=== PATIENT | female | born 1945 | race Caucasian/White ===

== ENCOUNTER 2018-03-31 15:57 | Inpatient (IN) | payer OTHER ==
--- NOTE | 2018-03-31 18:12 | PDOC ---
History of Present Illness - General Chief Complaint: Pain, Acute Stated Complaint: SENT BY PCP Time Seen by Provider: 03/31/18 18:12 Past History - Past Medical History Allergies/Adverse Reactions: Allergies Allergy/AdvReac Type Severity Reaction Status Date / Time No Known Allergies Allergy Verified 03/31/18 16:26 Home Medications: Ambulatory Orders Unobtainable 03/05/17 Anemia: No Asthma: No Cancer: No Cardiac Disorders: No CVA: No COPD: No CHF: No Dementia: No Diabetes: Yes GI Disorders: No Disorders: No HTN: Yes Hypercholesterolemia: No Liver Disease: No Seizures: No Thyroid Disease: No - Surgical History Appendectomy: Yes Cholecystectomy: Yes - Suicide/Smoking/Psychosocial Hx Smoking History: Never smoked If you are a former smoker, when did you quit?: 2013 Hx Alcohol Use: No Drug/Substance Use Hx: No Substance Use Type: None *Physical Exam - Vital Signs Last Vital Signs Temp Pulse Resp BP Pulse Ox 98.6 F 77 18 157/71 98 03/31/18 16:24 03/31/18 16:24 03/31/18 16:24 03/31/18 16:24 03/31/18 16:24 Moderate Sedation - Procedure Monitoring Vital Signs: Procedure Monitoring Vital Signs Temperature 98.6 F 03/31/18 16:24 Pulse Rate 77 03/31/18 16:24 Respiratory Rate 18 03/31/18 16:24 Blood Pressure 157/71 03/31/18 16:24 O2 Sat by Pulse Oximetry (%) 98 03/31/18 16:24
--- NOTE | 2018-03-31 18:28 | PDOC ---
History of Present Illness - General Chief Complaint: Pain, Acute Stated Complaint: SENT BY PCP Time Seen by Provider: 03/31/18 18:12 History Source: Patient Exam Limitations: No Limitations - History of Present Illness Initial Comments: 03/31/18 18:52 72 yo F with a hx of HTN, DM, and nephrolithiasis presents to the emergency department for admission per Dr. Overton for nephrolithiasis. Per Dr. Overton , he states she is scheduled for a procedure tomorrow (lithotripsy). Per the patient, she states she was to come to the ED if the pain was intolerable. She has had pain in the left lower back since January 2018 with radiation to the left groin, 12/05, intermittent, and without aggravating and relieving factors. Denies a previous lithotripsy in the past. Denies the following: fever, chills, vomiting, headaches, ears/nose/throat pain, chest pain, SOB, abdominal pain, dysuria, hematuria, diarrhea, hematochezia, and leg pain/swelling. Per the patient, she endorses increased urinary frequency and nausea. Past History - Past Medical History Allergies/Adverse Reactions: Allergies Allergy/AdvReac Type Severity Reaction Status Date / Time No Known Allergies Allergy Verified 03/31/18 16:26 Home Medications: Ambulatory Orders Acetaminophen 1,000 mg PO BID PRN 03/31/18 Alendronate Sodium [Binosto] 70 mg PO WEEKLY 03/31/18 Atorvastatin Ca [Lipitor] 40 mg PO HS 03/31/18 Clotrimazole [Itch Relief] 45 gm TP BID 03/31/18 Fluticasone Prop 0.05% Nasal [Flonase -] 1 spray NS DAILY 03/31/18 Fluticasone Propionate [Flovent Diskus] 50 mcg IH BID 03/31/18 Gabapentin 100 mg PO TID 03/31/18 Hydrochlorothiazide [Hctz -] 25 mg PO DAILY 03/31/18 Insulin Glargine,Hum.rec.anlog [Basaglar Guerreroikpen U-100] 40 unit SQ HS 03/31/18 Latanoprost 0.005% Eye Drops [Xalatan 0.005% Eye Drops -] 1 drop HS 03/31/18 Lisinopril [Prinivil -] 40 mg PO DAILY 03/31/18 Metoprolol Succinate 25 mg PO DAILY 03/31/18 Repaglinide [Prandin -] 0.5 mg PO DAILY 03/31/18 metFORMIN HCL [Metformin HCl] 1,000 mg PO BID 03/31/18 Anemia: No Asthma: No Cancer: No Cardiac Disorders: No CVA: No COPD: No CHF: No Dementia: No Diabetes: Yes GI Disorders: No Disorders: No HTN: Yes Hypercholesterolemia: No Liver Disease: No Seizures: No Thyroid Disease: No - Surgical History Appendectomy: Yes Cholecystectomy: Yes - Suicide/Smoking/Psychosocial Hx Smoking History: Never smoked If you are a former smoker, when did you quit?: 2013 Hx Alcohol Use: No Drug/Substance Use Hx: No Substance Use Type: None Review of Systems - Review of Systems Able to Perform ROS?: Yes Is the patient limited Frisian proficient: No Constitutional: No: Chills, Diaphoresis, Fever, Weakness HEENTM: No: Eye Pain, Recent change in vision, Ear Pain, Nose Pain, Throat Pain , Mouth Pain Respiratory: No: Cough, Shortness of Breath, SOB with Exertion, Hemoptysis Cardiac (ROS): No: Chest Pain, Lightheadedness, Palpitations, Syncope, Chest Tightness ABD/GI: No: Constipated, Diarrhea, Nausea, Rectal Bleeding, Vomiting, Tarry Stools : No: Burning, Dysuria, Hematuria, Pain Musculoskeletal: Yes: Back Pain (left side). No: Joint Pain, Neck Pain Integumentary: No: Dryness, Erythema, Rash Neurological: No: Headache, Numbness, Tingling, Tremors, Ataxia, Dizziness Psychiatric: No: Change in Appetite Endocrine: No: Unexplained Weight Gain Hematologic/Lymphatic: No: Anemia *Physical Exam - Vital Signs Last Vital Signs Temp Pulse Resp BP Pulse Ox 98.6 F 77 18 157/71 98 03/31/18 16:24 03/31/18 16:24 03/31/18 16:24 03/31/18 16:24 03/31/18 16:24 - Physical Exam General Appearance: Yes: Nourished, Appropriately Dressed. No: Apparent Distress, Intoxicated HEENT: positive: EOMI, ROSE, Normal ENT Inspection, Normal Voice, Symmetrical, TMs Normal, Pharynx Normal, Hearing Grossly Normal. negative: Pale Conjunctivae , Scleral Icterus (R), Scleral Icterus (L), Muffled/Hoarse voice, Pharyngeal Erythema, Tonsillar Exudate, Tonsillar Erythema, Nasal Congestion, Rhinorrhea, Excessive drooling Neck: positive: Trachea midline, Supple. negative: Tender, Lymphadenopathy (R) , Lymphadenopathy (L), Tender lateral, Tender midline Respiratory/Chest: positive: Lungs Clear, Normal Breath Sounds. negative: Chest Tender, Respiratory Distress, Accessory Muscle Use, Crackles, Rales, Rhonchi, Stridor, Wheezing Cardiovascular: positive: Regular Rhythm, Regular Rate, S1, S2. negative: Systolic Murmur Gastrointestinal/Abdominal: positive: Normal Bowel Sounds, Flat, Soft. negative : Tender, Rebound, Tenderness Lymphatic: negative: Adenopathy Musculoskeletal: positive: Normal Inspection, CVA Tenderness (L). negative: CVA Tenderness (R), Vertebral Tenderness Extremity: positive: Normal Capillary Refill, Normal Inspection, Normal Range of Motion. negative: Tender Integumentary: positive: Normal Color, Dry, Warm Neurologic: positive: motorized squad captain II-XII NML intact, Fully Oriented, Alert, Normal Mood/ Affect, Normal Response, Motor Strength 5/5. negative: EOM Palsy, Facial Droop , Sensory Deficit Moderate Sedation - Procedure Monitoring Vital Signs: Procedure Monitoring Vital Signs Temperature 98.6 F 03/31/18 16:24 Pulse Rate 77 03/31/18 16:24 Respiratory Rate 18 03/31/18 16:24 Blood Pressure 157/71 03/31/18 16:24 O2 Sat by Pulse Oximetry (%) 98 03/31/18 16:24 Heart Score/ECG Review - ECG Intrepretation Comment:: ventricular rate is 78 bpm, MI is 140 ms, QRS is 70 ms, QTc is 373 ms. Normal sinus rhythm without ST elevations or depressions. ED Treatment Course - LABORATORY CBC & Chemistry Diagram: 04/01/18 14:30 04/01/18 06:40 Medical Decision Making - Medical Decision Making 72 yo F with a hx of HTN, DM, and nephrolithiasis presents to the emergency department for admission per Dr. Overton for nephrolithiasis Initial vitals: Initial Vital Signs Temp Pulse Resp BP Pulse Ox 98.6 F 77 18 157/71 98 03/31/18 16:24 03/31/18 16:24 03/31/18 16:24 03/31/18 16:24 03/31/18 16:24 Work up: ddx: nephrolithiasis pre-op admission. possibly increase in pain possibly secondary to infected renal stone vs renal colic vs pyelonephritis Laboratory Tests 03/31/18 03/31/18 03/31/18 19:37 19:37 19:37 WBC 8.1 RBC 3.85 Hgb 10.4 L Hct 31.9 L MCV 82.9 MCH 27.0 MCHC 32.6 RDW 14.5 Plt Count 225 MPV 10.1 Absolute Neuts (auto) 3.7 Neutrophils % 45.3 Lymphocytes % 43.4 H Monocytes % 8.1 Eosinophils % 2.6 Basophils % 0.6 Nucleated RBC % 0 PT with INR 11.20 INR 0.95 PTT (Actin FS) 28.1 Sodium 141 Potassium 4.8 Chloride 108 H Carbon Dioxide 26 Anion Gap 8 BUN 18 Creatinine 1.1 Creat Clearance w eGFR 48.69 Random Glucose 173 H Calcium 10.9 H Total Bilirubin 0.2 AST 14 L ALT 32 Alkaline Phosphatase 62 Total Protein 7.4 Albumin 4.0 Urine Color Urine Appearance Urine pH Ur Specific [place] Urine Protein Urine Glucose (UA) Urine Ketones Urine Blood Urine Nitrite Urine Bilirubin Urine Urobilinogen Ur Leukocyte Esterase Urine WBC (Auto) Urine RBC (Auto) Ur Epithelial Cells Hyaline Casts Blood Type Antibody Screen 03/31/18 03/31/18 19:37 20:50 WBC RBC Hgb Hct MCV MCH MCHC RDW Plt Count MPV Absolute Neuts (auto) Neutrophils % Lymphocytes % Monocytes % Eosinophils % Basophils % Nucleated RBC % PT with INR INR PTT (Actin FS) Sodium Potassium Chloride Carbon Dioxide Anion Gap BUN Creatinine Creat Clearance w eGFR Random Glucose Calcium Total Bilirubin AST ALT Alkaline Phosphatase Total Protein Albumin Urine Color Ltyellow Urine Appearance Clear Urine pH 6.0 Ur Specific [place] 1.013 Urine Protein Negative Urine Glucose (UA) 1+ H Urine Ketones Negative Urine Blood 2+ H Urine Nitrite Negative Urine Bilirubin Negative Urine Urobilinogen Negative Ur Leukocyte Esterase Negative Urine WBC (Auto) 3 Urine RBC (Auto) 3 Ur Epithelial Cells Rare Hyaline Casts 1 Blood Type A POSITIVE Antibody Screen Negative patients lab within normal limits. Spoke to Dr. Overton who states she has a 6 mm stone on the left side requiring the procedure. patient was admitted to med/ surg. Dispo: Admit *DC/Admit/Observation/Transfer Diagnosis at time of Disposition: Nephrolithiasis - Referrals - Patient Instructions - Post Discharge Activity
--- NOTE | 2018-03-31 19:05 | PDOC ---
Attending Attestation - HPI HPI: 03/31/18 19:14 The patient is a 72 year old female with a significant past medical history of HTN, Diabetes and nephrolithiasis who presents to the ED, sent by Urologist, for flank pain. Patient was sent by Dr. Overton to be admitted to the hospital for a 6 ml stone on the left side. Patient is already scheduled for a lithotripsy tomorrow but came into the ED today for flank pain. She reports 10/ 10 intermittent left sided flank pain radiating to her left lower groin. Patient also reports increased frequency associated with present symptoms. Denies dysuria or hematuria. Denies fever or chills. Denies any other symptoms. <Rosy Garcia - Last Filed: 03/31/18 19:14> - Resident Resident Name: Jl Gr - ED Attending Attestation I have performed the following: I have examined & evaluated the patient, The case was reviewed & discussed with the resident, I agree w/resident's findings & plan, Exceptions are as noted - HPI HPI: 03/31/18 19:04 72 yo female being admitted for intractable flank pain and has a documented 6mm kidney stone. Her urologist Dr. Westley Edouard is doing a lithotripsy tomorrow plan npo after midnight - Physicial Exam PE: 03/31/18 20:27 wnwd 72 yo female p/w left flank pain radiating to left groin neck supple lungs cta b/l cvs [id number] abd no rebound left cva tenderness ext no edema,no clubbing, no cyanosis skin warm and dry neuro axox3,ambulatory psych appropriate - Medical Decision Making 03/31/18 20:30 antiemetics,pain meds ordered cbc ,comp,UA,ekg npo after midnight med.surg admission <Chiquita Schmitz - Last Filed: 03/31/18 20:31> Attestations - Attestations 03/31/18 19:15 Documentation prepared by Rosy Garcia, acting as medical esthetician for Chiquita Schmitz MD <Rosy Garcia - Last Filed: 03/31/18 19:14>
[2018-03-31] MEDS ORDERED: ACETAMINOPHEN 1000 MG/100 ML VIAL (NON FORMULARY) IVPB ONE (19:08)
[2018-03-31] MEDS ORDERED: ONDANSETRON 4 MG/2 ML VIAL IVPUSH ONE (19:08)
[2018-03-31] MEDS ORDERED: SODIUM CHLORIDE 1,000 ML IV STA (19:08)
[2018-03-31] MEDS ORDERED: ACETAMINOPHEN INJECTION 100 ML IVPB ONE (19:20)
[2018-03-31] MEDS ORDERED: ONDANSETRON 4 MG/2 ML VIAL ONE (19:21)
[2018-03-31 20:01] LABS: BASO % 0.6 % (0-2.0); EOS % 2.6 % (0-4.5); HEMATOCRIT 31.9 % (32.4-45.2); HEMOGLOBIN 10.4 GM/dL (10.7-15.3); LYMPH % 43.4 % (8-40); MCHC 32.6 g/dl (32.0-36.0); MEAN CELL VOLUME 82.9 fl (80-96); MEAN PLT VOLUME 10.1 fl (7.5-11.1); MONO % 8.1 % (3.8-10.2); NEUT % 45.3 % (42.8-82.8); PLATELET COUNT 225 K/MM3 (134-434); RBC 3.85 M/mm3 (3.60-5.2); RDW 14.5 % (11.6-15.6); WHITE BLOOD COUNT 8.1 K/mm3 (4.0-10.0)
[2018-03-31 20:15] LABS: INR 0.95 (0.83-1.09); PROTHROMBIN TIME (PATIENT) 11.2 SEC (9.7-13.0)
[2018-03-31 20:18] LABS: ACTIVATED PTT 28.1 SECONDS (25.2-36.5)
[2018-03-31 20:22] LABS: ALK PHOS 62 U/L (45-117); ANION GAP 8 MMOL/L (8-16); BILIRUBIN,TOTAL 0.2 mg/dL (0.2-1); BLOOD UREA NITROGEN 18 mg/dL (7-18); CALCIUM 10.9 mg/dL (8.5-10.1); CHLORIDE 108 mmol/L (98-107); CO2 26 mmol/L (21-32); CREATININE 1.1 mg/dL (0.55-1.3); GLUCOSE,RANDOM 173 mg/dL (74-106); POTASSIUM 4.8 mmol/L (3.5-5.1); SGOT/AST 14 U/L (15-37); SGPT/ALT 32 U/L (13-61); SODIUM 141 mmol/L (136-145); TOT PROT 7.4 g/dl (6.4-8.2)
[2018-03-31] MEDS ORDERED: KETOROLAC TROMETHAMINE 10 MG TABLET PO PRN (20:43)
[2018-03-31] MEDS ORDERED: SODIUM CHLORIDE 1,000 ML IV SCH (20:45)
--- NOTE | 2018-03-31 20:51 | HP ---
CHIEF COMPLAINT: nephrolithiasis PCP: Dr. Erazo HISTORY OF PRESENT ILLNESS: 72 y/o F with PMH HTN, IDDM, who presents to the ED c/o flank pain over the past two weeks. As per pt, during this time, she has had L sided flank pain, radiating to her L groin. Her pain is episodic and intermittent, initially 10/ 10 and a/w urinary frequency. Recently, pt saw urologist, Dr. Overton and she was scheduled for L sided lithotripsy tomorrow for a 6mm stone. She was told to come to the hospital earlier if her pain level increased. For this reason, pt came to the ED for evaluation and early admission before her procedure. During this time, pt endorses mild nausea, with few episodes of NBNB emesis. Also with urinary frequency, with mild foul-smell. Otherwise without fever, chills, hematuria, or changes in bowel function. Has never had nephrolithiasis in past. ER course was notable for: (1) IV tylenol (2) zofran 4mg IVP x1 (3) NS 1L Recent Travel: denies PAST MEDICAL HISTORY: as above PAST SURGICAL HISTORY: "vaginal sx", appendectomy, cholecystectomy Social History: currently does not work and did not in past. lives with family Smoking: denies Alcohol: denies Drugs: denies Family History: denies Allergies No Known Allergies Allergy (Verified 03/31/18 16:26) HOME MEDICATIONS: Home Medications Medication Instructions Recorded Unobtainable 03/05/17 states gave her home med list to ED staff- cannot retrieve and does not know name of meds will need to call pharmacy in AM: [facility] [phone] to verify REVIEW OF SYSTEMS CONSTITUTIONAL: Absent: fever, chills, diaphoresis, generalized weakness, malaise, loss of appetite, weight change HEENT: Absent: rhinorrhea, nasal congestion, throat pain, throat swelling, difficulty swallowing, mouth swelling, ear pain, eye pain, visual changes CARDIOVASCULAR: Absent: chest pain, syncope, palpitations, irregular heart rate, lightheadedness , peripheral edema RESPIRATORY: Absent: cough, shortness of breath, dyspnea with exertion, orthopnea, wheezing, stridor, hemoptysis GASTROINTESTINAL: +nausea Absent: abdominal pain, abdominal distension, nausea, vomiting, diarrhea, constipation, melena, hematochezia GENITOURINARY: +frequency Absent: dysuria, frequency, urgency, hesitancy, hematuria, flank pain, genital pain MUSCULOSKELETAL: Absent: myalgia, arthralgia, joint swelling, back pain, neck pain SKIN: Absent: rash, itching, pallor HEMATOLOGIC/IMMUNOLOGIC: Absent: easy bleeding, easy bruising, lymphadenopathy, frequent infections ENDOCRINE: Absent: unexplained weight gain, unexplained weight loss, heat intolerance, cold intolerance NEUROLOGIC: Absent: headache, focal weakness or paresthesias, dizziness, unsteady gait, seizure, mental status changes, bladder or bowel incontinence PSYCHIATRIC: Absent: anxiety, depression, suicidal or homicidal ideation, hallucinations. PHYSICAL EXAMINATION Vital Signs - 24 hr 03/31/18 16:24 Temperature 98.6 F Pulse Rate 77 Respiratory 18 Rate Blood Pressure 157/71 O2 Sat by Pulse 98 Oximetry (%) GENERAL: Very pleasant. Awake, alert, and fully oriented, in no acute distress. HEAD: Normal with no signs of trauma. EYES: Pupils equal, round and reactive to light, extraocular movements intact, sclera anicteric, conjunctiva clear. EARS, NOSE, THROAT: Ears normal, nares patent, oropharynx clear without exudates. Moist mucous membranes. NECK: Normal range of motion, supple without lymphadenopathy LUNGS: Breath sounds equal, clear to auscultation bilaterally. No wheezes, and no crackles. No accessory muscle use. HEART: Regular rate and rhythm, normal S1 and S2 without murmur, rub or gallop. ABDOMEN: Soft, nontender, not distended, normoactive bowel sounds MUSCULOSKELETAL: +L CVA tenderness LOWER EXTREMITIES: 2+ pt pulses, warm, trace pedal edema. No calf tenderness NEUROLOGICAL: Cranial nerves II-XII intact. able to ambulate freely. 5/5 motor strength UE, LE. sensation intact. PSYCHIATRIC: Cooperative. Good eye contact. SKIN: Warm, dry, normal turgor Laboratory Results - last 24 hr 03/31/18 03/31/18 03/31/18 19:37 19:37 19:37 WBC 8.1 RBC 3.85 Hgb 10.4 L Hct 31.9 L MCV 82.9 MCH 27.0 MCHC 32.6 RDW 14.5 Plt Count 225 MPV 10.1 Absolute Neuts (auto) 3.7 Neutrophils % 45.3 Lymphocytes % 43.4 H Monocytes % 8.1 Eosinophils % 2.6 Basophils % 0.6 Nucleated RBC % 0 PT with INR 11.20 INR 0.95 PTT (Actin FS) 28.1 Sodium 141 Potassium 4.8 Chloride 108 H Carbon Dioxide 26 Anion Gap 8 BUN 18 Creatinine 1.1 Creat Clearance w eGFR 48.69 Random Glucose 173 H Calcium 10.9 H Total Bilirubin 0.2 AST 14 L ALT 32 Alkaline Phosphatase 62 Total Protein 7.4 Albumin 4.0 UA 03/31/18 20:50 Urine Glucose (UA) 1+ H Urine Ketones Negative Urine Blood 2+ H Urine Nitrite Negative Urine Bilirubin Negative Urine Urobilinogen Negative Ur Leukocyte Esterase Negative EKG: NSR, nl axis, no ST-t wave changes, Qtc 373ms ASSESSMENT/PLAN: 72 y/o F with PMH HTN, IDDM, who presents to the ED c/o flank pain over the past two weeks, who was told to come to the ED for evaluation of L nephrolithiasis. #L nephrolithiasis, 6mm stone -scheduled for lithotripsy tomorrow with uro, Dr. Overton -with elevated corrected Ca (10.9), though rare may have led to stone -NPO after MN -T+S, coags -IVF -flomax 0.4mg PO qd -Pain control: Toradol 10q6h PRN -Qtc WNL (373); can use zofran if needed. currently without nausea #HTN-uncontrolled -likely 2/2 pain -need to call pharmacy to verify meds #IDDM -hold home agents -ISS, BGM ACHS #F/E/N IV NS 100 cc/hr continue to follow lytes NPO after MN #PPX DVT: SCD's, XENIA's for lithotripsy tomorrow #Dispo med-surg for lithotripsy tomorrow with Dr. Overton Visit type - Emergency Visit Emergency Visit: Yes ED Registration Date: 03/31/18 Care time: The patient presented to the Emergency Department on the above date and was hospitalized for further evaluation of their emergent condition. - New Patient This patient is new to me today: Yes Date on this admission: 04/01/18 - Critical Care Critical Care patient: No
[2018-03-31 21:05] LABS: URINE APPEARANCE CLEAR; URINE BILIRUBIN NEGATIVE (<2.0 mg/dL); URINE COLOR LTYELLOW; URINE GLUCOSE (UA) 1+ (NEGATIVE); URINE KETONE NEGATIVE (NEGATIVE); URINE LEUK ESTERASE NEGATIVE (NEGATIVE); URINE NITRITE NEGATIVE (NEGATIVE); URINE PROTEIN NEGATIVE (NEGATIVE); URINE UROBILINOGEN NEGATIVE mg/dL (0.2-1.0)
[2018-03-31 21:10] LABS: EPI CELLS RARE /HPF (FEW); URINE HYALINE CAST 1 /lpf
--- NOTE | 2018-03-31 21:31 | PN ---
Teaching Attending Note Name of Resident: Renetta Andrade ATTENDING PHYSICIAN STATEMENT I saw and evaluated the patient. I reviewed the resident's note and discussed the case with the resident. I agree with the resident's findings and plan as documented. SUBJECTIVE: Patient is a 72 year old woman with PMH of HTN, Insulin-treatd DM and kidney stones who presents to the ER for preop workup for lithotripsy. Has had flank pain over the past two weeks. During this time, she has had L sided flank pain, radiating to her L groin. Her pain is episodic and intermittent, initially 10/ 10 and associated with urinary frequency. Dr. Overton scheduled her for L sided lithotripsy tomorrow for a 6mm stone. She was told to come to the hospital earlier if her pain level increased. She has mild nausea, with few episodes of NBNB emesis. Also with urinary frequency, with mild foul-smell. Otherwise without fever, chills, hematuria, or changes in bowel function. OBJECTIVE: Alert Vital Signs Period Temp Pulse Resp BP Sys/Acevedo Pulse Ox Last 24 Hr 98.6 F 77 18 157/71 98 HEENT: No Jaundice, eye redness or discharge, PERRLA, EOMI. Normocephalic, atraumatic. External ears are normal and hearing is grossly intact. No nasal discharge. Neck: Supple, nontender. No palpable adenopathy or thyromegaly. No JVD Chest: Good effort. Clear to auscultation and percussion. Heart: Regular. No S3, rub or murmur Abdomen: Not distended, soft, nontender and no HSM. No rebound or guarding. Normoactive bowel sounds. Ext: Peripheral pulses intact. No leg edema. Skin: Warm and dry. No petechiae, rash or ecchymosis. Neuro: Alert. Oriented x3. CN 2-12 grossly intact. Sensation grossly intact in all four extremities and DTR are symmetric. Current Medications Generic Name Dose Route Start Last Admin Trade Name Freq PRN Reason Stop Dose Admin Sodium Chloride 1,000 mls @ 100 mls/hr 03/31/18 20:58 Normal Saline - IV ASDIR [facility] Insulin Aspart 1 vial 03/31/18 22:00 Novolog Vial Sliding Scale - SQ ACHS [facility] Protocol Ketorolac Tromethamine 10 mg 03/31/18 20:43 Toradol PO 04/05/18 20:42 Q6H PRN PAIN LEVEL 7 - 10 Tamsulosin HCl 0.4 mg 04/01/18 08:30 Flomax - PO DAILY@0830 [facility] Home Medications Medication Instructions Recorded Acetaminophen 1,000 mg PO BID PRN 03/31/18 Alendronate Sodium [Binosto] 70 mg PO WEEKLY 03/31/18 Atorvastatin Ca [Lipitor] 40 mg PO HS 03/31/18 Clotrimazole [Itch Relief] 45 gm TP BID 03/31/18 Fluticasone Prop 0.05% Nasal 1 spray NS DAILY 03/31/18 [Flonase -] Fluticasone Propionate [Flovent 50 mcg IH BID 03/31/18 Diskus] Gabapentin 300 mg PO TID 03/31/18 Hydrochlorothiazide [Hctz -] 25 mg PO DAILY 03/31/18 Insulin Glargine,Hum.rec.anlog 40 unit SQ HS 03/31/18 [Basaglar Kwikpen U-100] Latanoprost 0.005% Eye Drops 1 drop HS 03/31/18 [Xalatan 0.005% Eye Drops -] Lisinopril [Prinivil -] 40 mg PO DAILY 03/31/18 Metoprolol Succinate 12.5 mg PO DAILY 03/31/18 Repaglinide [Prandin -] 0.5 mg PO DAILY 03/31/18 metFORMIN HCL [Metformin HCl] 1,000 mg PO BID 03/31/18 Abnormal Lab Results 03/31/18 03/31/18 03/31/18 19:37 19:37 20:50 Hgb 10.4 L Hct 31.9 L Lymphocytes % 43.4 H Chloride 108 H Random Glucose 173 H Calcium 10.9 H AST 14 L Urine Glucose (UA) 1+ H Urine Blood 2+ H ASSESSMENT AND PLAN: 1. Left side Kidney Stone - Scheduled for lithotripsy. Will keep her NPO, give IVF, flomax and give toradol for pain control. EKG and UA pending. 2. DM For now, we will hold the home diabetes drugs and implement sliding scale insulin regimen. Provide comprehensive diabetes care with patient teaching and counseling about the importance of adherence to prescribed diabetes regimen, euglycemia, eye care and foot care. 3. Anemia - Likely multifactorial. Will do basic anemia work up including serial stool guaiacs, reticulocyte count and iron studies. 4. Hypertension - Restart outpatient antihypertensive drugs and revise regimen to ensure smooth [id number] good BP control. Nonpharmacologic measures to control hypertension like weight loss, salt restriction and exercise discussed. 5. DVT prophylaxis - SCD, TEDs 6. Advance directives - Full code
[2018-03-31] MEDS: SODIUM CHLORIDE 1,000 ML IV SCH (22:44)
[2018-03-31] MEDS: INSULIN SLIDING SCALE (NOVOLOG) 1 VIAL SQ SCH (22:58)
[2018-04-01 02:55] VITALS: BMI 28.0
[2018-04-01] MEDS ORDERED: DEXTROSE 50%-WATER 25 GM/50 ML DISP.SYRIN IVPUSH ONE (05:46)
[2018-04-01] MEDS: INSULIN SLIDING SCALE (NOVOLOG) 1 VIAL SQ SCH ×4 (06:17→21:54)
[2018-04-01 07:23] LABS: BASO % 0.6 % (0-2.0); EOS % 2.5 % (0-4.5); HEMOGLOBIN 8.7 GM/dL (10.7-15.3); MCH 26.5 pg (25.7-33.7); MCHC 32.3 g/dl (32.0-36.0); MEAN CELL VOLUME 82.1 fl (80-96); MEAN PLT VOLUME 9.5 fl (7.5-11.1); MONO % 9.2 % (3.8-10.2); NEUT % 49.7 % (42.8-82.8); PLATELET COUNT 176 K/MM3 (134-434); RBC 3.29 M/mm3 (3.60-5.2); RDW 14.4 % (11.6-15.6); WHITE BLOOD COUNT 5.8 K/mm3 (4.0-10.0)
[2018-04-01 07:44] LABS: ANION GAP 5 MMOL/L (8-16); BLOOD UREA NITROGEN 14 mg/dL (7-18); CALCIUM 9.4 mg/dL (8.5-10.1); CHLORIDE 114 mmol/L (98-107); CO2 24 mmol/L (21-32); CREATININE 0.9 mg/dL (0.55-1.3); GLUCOSE,RANDOM 143 mg/dL (74-106); MAGNESIUM 1.4 mg/dL (1.8-2.4); PHOSPHOROUS 2.8 mg/dL (2.5-4.9); POTASSIUM 4.5 mmol/L (3.5-5.1); SODIUM 142 mmol/L (136-145)
--- NOTE | 2018-04-01 07:59 | PN ---
Physical Exam: SUBJECTIVE: Patient seen and examined by me at bedside. Admitted for flank pain and nephrolithiasis with plans for lithotripsy today with Dr. Overton Patient reports bilateral flank pain L>R No fevers overnight Otherwise, patient denies chest pain, palpitations, shortness of breath, headaches, vomiting, dizziness. OBJECTIVE: Vital Signs Period Temp Pulse Resp BP Sys/Acevedo Pulse Ox Last 24 Hr 97.5 F-98.6 F 64-77 18-20 106-157/47-71 94-98 GENERAL: The patient is awake, alert, and fully oriented, in no acute distress. EYES: PERRL, sclera anicteric, conjunctiva clear. ENT: Moist mucous membranes. NECK: Trachea midline, full range of motion, supple. LUNGS: CTA bilaterally, no wheezes, no crackles, no accessory muscle use. HEART: Regular rate and rhythm, Normal S1 and S2 without murmur, rub or gallop. ABDOMEN: Soft, nontender, nondistended, normoactive bowel sounds. (+) Left CVA tenderness EXTREMITIES: No pitting edema NEUROLOGICAL: Motor strength 5/5 bilaterally with sensory intact. No facial asymmetry SKIN: Warm, dry, normal turgor, no rashes or lesions noted Laboratory Results 04/01/18 06:40 04/01/18 06:40 04/01/18 06:40 Calcium 9.4 Phosphorus 2.8 Magnesium 1.4 L Active Medications Generic Name Dose Route Start Last Admin Trade Name Freq PRN Reason Stop Dose Admin Sodium Chloride 1,000 mls @ 100 mls/hr 03/31/18 20:58 03/31/18 22:44 Normal Saline - IV 100 mls/hr ASDIR ANITRA Administration Insulin Aspart 1 vial 03/31/18 22:00 04/01/18 06:17 Novolog Vial Sliding Scale - SQ Not Given ACHS [facility] Protocol Ketorolac Tromethamine 10 mg 03/31/18 20:43 Toradol PO 04/05/18 20:42 Q6H PRN PAIN LEVEL 7 - 10 Tamsulosin HCl 0.4 mg 04/01/18 08:30 Flomax - PO DAILY@0830 [facility] ASSESSMENT/PLAN: Patient is a 72 year old female who presented for worsening flank pain in the last two weeks and was told to come to the ED by her Urologist for further evaluation of Left Nephrolithiasis. Left Nephrolithiasis -With 6MM stone -Scheduled for Lithotripsy with Dr. Overton today -IV fluids with NS @100mls/hr -NPO -Continue Flomax 0.4mg po daily -Pain control with Toradol 10mg Q6H po PRN HTN -Currently controlled -Continue to monitor BP IDDMII -ISS, BGM ACHS Acute Anemia -Possibly secondary to hemodilution -Will send out Iron panel -Continue to monitor CBC or over bleeding F/E/N -IV NS 100 cc/hr -Hypomagnesemia. Replete and repeat -NPO #Prophylaxis -Moderate risk. SCD's before procedure for DVT -No GI required Disposition -Full code -Scheduled for lithotripsy today with Dr. Tian Sarmiento [id number] Visit type - Emergency Visit Emergency Visit: Yes ED Registration Date: 03/31/18 Care time: The patient presented to the Emergency Department on the above date and was hospitalized for further evaluation of their emergent condition. - New Patient This patient is new to me today: Yes Date on this admission: 04/01/18 - Critical Care Critical Care patient: No
[2018-04-01] MEDS ORDERED: KETOROLAC TROMETHAMINE 30 MG/1 ML VIAL IVPUSH PRN ×2 (08:19→19:00)
[2018-04-01] MEDS ORDERED: ACETAMINOPHEN 1000 MG/100 ML VIAL (NON FORMULARY) IVPB PRN ×2 (08:20→19:00)
[2018-04-01] MEDS ORDERED: TAMSULOSIN HCL 0.4 MG CAP PO SCH (08:30)
[2018-04-01] MEDS: SODIUM CHLORIDE 1,000 ML IV SCH (08:58)
[2018-04-01] MEDS ORDERED: MAGNESIUM SULF 50% (8.12 MEQ/2 ML-1 GM VIAL) IVPB ONE (09:00)
--- NOTE | 2018-04-01 09:51 | EKG ---
Test Reason : Blood Pressure : / mmHG Vent. Rate : 078 BPM Atrial Rate : 078 BPM P-R Int : 140 ms QRS Dur : 070 ms QT Int : 328 ms P-R-T Axes : 005 002 036 degrees QTc Int : 373 ms NORMAL SINUS RHYTHM NORMAL ECG NO PREVIOUS ECGS AVAILABLE Confirmed by JAYY CAVANAUGH MD ([id number]) on 04/01/2018 9:51:06 AM Referred By: Confirmed By:JAYY CAVANAUGH MD
--- NOTE | 2018-04-01 10:23 | PN ---
Teaching Attending Note Name of Resident: Rosa Sarmiento ATTENDING PHYSICIAN STATEMENT I saw and evaluated the patient. I reviewed the resident's note and discussed the case with the resident. I agree with the resident's findings and plan as documented with exceptions below. SUBJECTIVE: Patient seen and examined. still with left flank/back pain. No urinary symptoms , fevers, or chills. OBJECTIVE: Vital Signs Period Temp Pulse Resp BP Sys/Acevedo Pulse Ox Last 24 Hr 97.5 F-98.6 F 59-77 18-20 106-157/47-71 94-98 Intake & Output 03/29/18 03/30/18 03/31/18 04/01/18 23:59 23:59 23:59 23:59 Intake Total 500 Balance 500 Weight 143 lb 143 lb 4 oz General: lying in bed in no acute distress Chest: CTAB, no rales or wheezing Abdomen:soft, LMQ tenderness, left CVA tenderness, ND, no voluntary or involuntary guarding or rigidity noted Extremities: no edema Home Medications Medication Instructions Recorded Acetaminophen 1,000 mg PO BID PRN 03/31/18 Alendronate Sodium [Binosto] 70 mg PO WEEKLY 03/31/18 Atorvastatin Ca [Lipitor] 40 mg PO HS 03/31/18 Clotrimazole [Itch Relief] 45 gm TP BID 03/31/18 Fluticasone Prop 0.05% Nasal 1 spray NS DAILY 03/31/18 [Flonase -] Fluticasone Propionate [Flovent 50 mcg IH BID 03/31/18 Diskus] Gabapentin 100 mg PO TID 03/31/18 Hydrochlorothiazide [Hctz -] 25 mg PO DAILY 03/31/18 Insulin Glargine,Hum.rec.anlog 40 unit SQ HS 03/31/18 [Basaglar Kwikpen U-100] Latanoprost 0.005% Eye Drops 1 drop HS 03/31/18 [Xalatan 0.005% Eye Drops -] Lisinopril [Prinivil -] 40 mg PO DAILY 03/31/18 Metoprolol Succinate 25 mg PO DAILY 03/31/18 Repaglinide [Prandin -] 0.5 mg PO DAILY 03/31/18 metFORMIN HCL [Metformin HCl] 1,000 mg PO BID 03/31/18 Active Medications Acetaminophen (Ofirmev Injection -) 1,000 mg IVPB Q6H PRN PRN Reason: PAIN LEVEL 1-5 Insulin Aspart (Novolog Vial Sliding Scale -) 1 vial SQ ACHS [facility]; Protocol Last Admin: 04/01/18 06:17 Dose: Not Given Ketorolac Tromethamine (Toradol Injection -) 30 mg IVPUSH Q6H PRN PRN Reason: PAIN LEVEL 6-10 Stop: 04/06/18 08:18 Tamsulosin HCl (Flomax -) 0.4 mg PO DAILY@0830 [facility] Last Admin: 04/01/18 08:06 Dose: Not Given Laboratory Results - last 24 hr 03/31/18 03/31/18 03/31/18 19:37 19:37 19:37 WBC 8.1 RBC 3.85 Hgb 10.4 L Hct 31.9 L MCV 82.9 MCH 27.0 MCHC 32.6 RDW 14.5 Plt Count 225 MPV 10.1 Absolute Neuts (auto) 3.7 Neutrophils % 45.3 Lymphocytes % 43.4 H Monocytes % 8.1 Eosinophils % 2.6 Basophils % 0.6 Nucleated RBC % 0 Retic Count PT with INR 11.20 INR 0.95 PTT (Actin FS) 28.1 Sodium 141 Potassium 4.8 Chloride 108 H Carbon Dioxide 26 Anion Gap 8 BUN 18 Creatinine 1.1 Creat Clearance w eGFR 48.69 POC Glucometer Random Glucose 173 H Hemoglobin A1c % Calcium 10.9 H Phosphorus Magnesium Total Bilirubin 0.2 AST 14 L ALT 32 Alkaline Phosphatase 62 Total Protein 7.4 Albumin 4.0 Urine Color Urine Appearance Urine pH Ur Specific [place] Urine Protein Urine Glucose (UA) Urine Ketones Urine Blood Urine Nitrite Urine Bilirubin Urine Urobilinogen Ur Leukocyte Esterase Urine WBC (Auto) Urine RBC (Auto) Ur Epithelial Cells Hyaline Casts Blood Type Antibody Screen 03/31/18 03/31/18 04/01/18 19:37 20:50 01:43 WBC RBC Hgb Hct MCV MCH MCHC RDW Plt Count MPV Absolute Neuts (auto) Neutrophils % Lymphocytes % Monocytes % Eosinophils % Basophils % Nucleated RBC % Retic Count PT with INR INR PTT (Actin FS) Sodium Potassium Chloride Carbon Dioxide Anion Gap BUN Creatinine Creat Clearance w eGFR POC Glucometer Random Glucose Hemoglobin A1c % Calcium Phosphorus Magnesium Total Bilirubin AST ALT Alkaline Phosphatase Total Protein Albumin Urine Color Ltyellow Urine Appearance Clear Urine pH 6.0 Ur Specific [place] 1.013 Urine Protein Negative Urine Glucose (UA) 1+ H Urine Ketones Negative Urine Blood 2+ H Urine Nitrite Negative Urine Bilirubin Negative Urine Urobilinogen Negative Ur Leukocyte Esterase Negative Urine WBC (Auto) 3 Urine RBC (Auto) 3 Ur Epithelial Cells Rare Hyaline Casts 1 Blood Type A POSITIVE A POSITIVE Antibody Screen Negative 04/01/18 04/01/18 04/01/18 01:43 05:32 05:35 WBC RBC Hgb Hct MCV MCH MCHC RDW Plt Count MPV Absolute Neuts (auto) Neutrophils % Lymphocytes % Monocytes % Eosinophils % Basophils % Nucleated RBC % Retic Count 1.24 PT with INR INR PTT (Actin FS) Sodium Potassium Chloride Carbon Dioxide Anion Gap BUN Creatinine Creat Clearance w eGFR POC Glucometer 64 57 Random Glucose Hemoglobin A1c % Calcium Phosphorus Magnesium Total Bilirubin AST ALT Alkaline Phosphatase Total Protein Albumin Urine Color Urine Appearance Urine pH Ur Specific [place] Urine Protein Urine Glucose (UA) Urine Ketones Urine Blood Urine Nitrite Urine Bilirubin Urine Urobilinogen Ur Leukocyte Esterase Urine WBC (Auto) Urine RBC (Auto) Ur Epithelial Cells Hyaline Casts Blood Type Antibody Screen 04/01/18 04/01/18 04/01/18 06:21 06:40 06:40 WBC 5.8 RBC 3.29 L Hgb 8.7 L Hct 27.0 L D MCV 82.1 MCH 26.5 MCHC 32.3 RDW 14.4 Plt Count 176 D MPV 9.5 Absolute Neuts (auto) 2.9 Neutrophils % 49.7 Lymphocytes % 38.0 Monocytes % 9.2 Eosinophils % 2.5 Basophils % 0.6 Nucleated RBC % 0 Retic Count PT with INR INR PTT (Actin FS) Sodium 142 Potassium 4.5 Chloride 114 H Carbon Dioxide 24 Anion Gap 5 L BUN 14 Creatinine 0.9 Creat Clearance w eGFR > 60 POC Glucometer 207 Random Glucose 143 H Hemoglobin A1c % Calcium 9.4 Phosphorus 2.8 Magnesium 1.4 L Total Bilirubin AST ALT Alkaline Phosphatase Total Protein Albumin Urine Color Urine Appearance Urine pH Ur Specific [place] Urine Protein Urine Glucose (UA) Urine Ketones Urine Blood Urine Nitrite Urine Bilirubin Urine Urobilinogen Ur Leukocyte Esterase Urine WBC (Auto) Urine RBC (Auto) Ur Epithelial Cells Hyaline Casts Blood Type Antibody Screen 04/01/18 04/01/18 06:40 09:56 WBC RBC Hgb Hct MCV MCH MCHC RDW Plt Count MPV Absolute Neuts (auto) Neutrophils % Lymphocytes % Monocytes % Eosinophils % Basophils % Nucleated RBC % Retic Count PT with INR INR PTT (Actin FS) Sodium Potassium Chloride Carbon Dioxide Anion Gap BUN Creatinine Creat Clearance w eGFR POC Glucometer 71 Random Glucose Hemoglobin A1c % 8.5 H Calcium Phosphorus Magnesium Total Bilirubin AST ALT Alkaline Phosphatase Total Protein Albumin Urine Color Urine Appearance Urine pH Ur Specific [place] Urine Protein Urine Glucose (UA) Urine Ketones Urine Blood Urine Nitrite Urine Bilirubin Urine Urobilinogen Ur Leukocyte Esterase Urine WBC (Auto) Urine RBC (Auto) Ur Epithelial Cells Hyaline Casts Blood Type Antibody Screen ASSESSMENT AND PLAN: 72 yof with PMHx of HTN, IDDM, admitted with left flank pain and obstructing uropathy -Reported left obstructive uropathy with 6 mm stone -HTN -IDDM, here with hypoglycemia Plan: NPO, IVF, pain control with toradol/tylenol. NO clinical evidence of infection, monitor off abx for now. For operative intervention today, Dr. Westley Edouard consulted. Hypoglycemic, continue to hold home diabetic agents while NPO. Add D5w to IVF for now. HOld ACEi DVTPPX low risk, start if hospital stay >48 hours and non ambulatory Dispo pending surgical intervention and clinical improvement. Plan discussed with patient and nursing.
[2018-04-01] MEDS ORDERED: DEXTROSE 5%-NORMAL SALINE 1,000 ML IV SCH (10:30)
[2018-04-01] MEDS ORDERED: GABAPENTIN 100 MG CAPSULE (FP) PO SCH (14:00)
[2018-04-01 15:34] LABS: HEMATOCRIT 31.5 % (32.4-45.2); HEMOGLOBIN 10.2 GM/dL (10.7-15.3); MCH 26.9 pg (25.7-33.7); MCHC 32.3 g/dl (32.0-36.0); MEAN CELL VOLUME 83.4 fl (80-96); MEAN PLT VOLUME 10.1 fl (7.5-11.1); PLATELET COUNT 213 K/MM3 (134-434); RBC 3.78 M/mm3 (3.60-5.2); RDW 14.7 % (11.6-15.6); WHITE BLOOD COUNT 7.1 K/mm3 (4.0-10.0)
[2018-04-01] MEDS ORDERED: LIDOCAINE HCL/PF 2% SDV 5ML VIAL ONE (17:46)
[2018-04-01] MEDS ORDERED: PROPOFOL 20 ML ONE ×2 (17:46)
--- NOTE | 2018-04-01 18:44 | OP ---
Operative Note - Note: Operative Date: 04/01/18 Pre-Operative Diagnosis: left ureteral stone with hydronephrosis Operation: cystoscopy/left retrograde pyelogram/left ureteroscopic stone manipulation and stent placement Findings: 6+ left upper ureteral stone with proximal 4/5 hydroureteronephrosis. Stone migrated into kidney and optics did not allow for further treatment of stone Post-Operative Diagnosis: Same as Pre-op Surgeon: Michael Overton Anesthesia: General Drains & Tubes with Location: 08/17 left stent
[2018-04-01] MEDS ORDERED: INSULIN (NOVOLOG) ASPART 100 UNITS/ML 10ML VIAL ONE (21:24)
[2018-04-01] MEDS ORDERED: PT OWN MED DRAWER 7, Y5N ONE (21:25)
[2018-04-01] MEDS: CLOTRIMAZOLE 1% CREAM 15 GM TUBE TP SCH (21:54)
[2018-04-01] MEDS: GABAPENTIN 100 MG CAPSULE (FP) PO SCH (21:55)
[2018-04-01] MEDS: DEXTROSE 5%-NORMAL SALINE 1,000 ML IV SCH (21:58)
[2018-04-01] MEDS ORDERED: CLOTRIMAZOLE 1% CREAM 15 GM TUBE TP SCH (22:00)
[2018-04-01] MEDS ORDERED: ATORVASTATIN CA 40 MG TABLET (FP) PO SCH ×2 (22:00)
[2018-04-01] MEDS ORDERED: LATANOPROST 0.005% OPHTH SOLN 2.5ML BOTTLE OU SCH ×2 (22:00)
[2018-04-02 04:14] LABS: SERUM IRON SATURATION 10 % (15-55); TOTAL IRON BINDING CAPACITY 365 ug/dL (250-450); UIBC 329 ug/dL (118-369)
[2018-04-02] MEDS: GABAPENTIN 100 MG CAPSULE (FP) PO SCH ×2 (06:23→14:17)
[2018-04-02] MEDS: INSULIN SLIDING SCALE (NOVOLOG) 1 VIAL SQ SCH ×3 (06:23→16:52)
[2018-04-02] MEDS: DEXTROSE 5%-NORMAL SALINE 1,000 ML IV SCH (06:24)
[2018-04-02 06:52] LABS: HEMATOCRIT 27.7 % (32.4-45.2); HEMOGLOBIN 9.1 GM/dL (10.7-15.3); MCH 26.9 pg (25.7-33.7); MCHC 32.9 g/dl (32.0-36.0); MEAN CELL VOLUME 81.8 fl (80-96); MEAN PLT VOLUME 9.8 fl (7.5-11.1); PLATELET COUNT 192 K/MM3 (134-434); RBC 3.38 M/mm3 (3.60-5.2); WHITE BLOOD COUNT 6.2 K/mm3 (4.0-10.0)
[2018-04-02 07:20] LABS: ANION GAP 4 MMOL/L (8-16); BLOOD UREA NITROGEN 13 mg/dL (7-18); CHLORIDE 112 mmol/L (98-107); CO2 25 mmol/L (21-32); GLUCOSE,RANDOM 186 mg/dL (74-106); MAGNESIUM 1.6 mg/dL (1.8-2.4); PHOSPHOROUS 2.4 mg/dL (2.5-4.9); POTASSIUM 4.8 mmol/L (3.5-5.1); SODIUM 141 mmol/L (136-145)
[2018-04-02] MEDS ORDERED: MAGNESIUM SULF 50% (8.12 MEQ/2 ML-1 GM VIAL) IVPB ONE (07:35)
[2018-04-02] MEDS ORDERED: SODIUM PHOSPHATE - 25 MM in SODIUM CHLORIDE 500 ML IVPB ONE (07:35)
[2018-04-02] MEDS ORDERED: TAMSULOSIN HCL 0.4 MG CAP PO SCH (08:30)
--- NOTE | 2018-04-02 08:32 | PN ---
Progress Note (short form) - Note Progress Note: Post op day#1.S/P Cystoscopy with stent placement under GA uneventful.Patient stable.No any anesthesia related problem.Patient DC from the anesthesia care.
[2018-04-02] MEDS: CLOTRIMAZOLE 1% CREAM 15 GM TUBE TP SCH (09:17)
[2018-04-02] MEDS ORDERED: metoPROLOL SUCCINATE 25 MG TAB.SR.24H (FP) PO SCH ×2 (10:00)
[2018-04-02] MEDS ORDERED: HYDROCHLOROTHIAZIDE 25 MG TABLET (FP) PO SCH ×2 (10:00)
[2018-04-02] MEDS ORDERED: LISINOPRIL 20 MG TABLET (FP) PO SCH ×2 (10:00)
--- NOTE | 2018-04-02 10:03 | PN ---
Physical Exam: SUBJECTIVE: Patient seen and examined by me at bedside. No acute events overnight S/P cystoscopy/left retrograde pyelogram/left ureteroscopic stone manipulation and stent placement (Day #1) Patient reports mild left flank pain and hematuria Otherwise, patient denies chest pain, palpitations, shortness of breath, headaches, vomiting, dizziness. OBJECTIVE: Vital Signs Period Temp Pulse Resp BP Sys/Acevedo Pulse Ox Last 24 Hr 97.5 F-98.5 F 59-74 14-20 133-157/64-83 94-97 GENERAL: The patient is awake, alert, and fully oriented, in no acute distress. EYES: Sclera anicteric, conjunctiva clear. ENT: Moist mucous membranes. LUNGS: CTA bilaterally, no wheezes, no crackles, no accessory muscle use. HEART: Regular rate and rhythm, Normal S1 and S2 without murmur, rub or gallop. ABDOMEN: Soft, mild tenderness upon palpation of suprapubic region, nondistended , normoactive bowel sounds. Improved left CVA tenderness. EXTREMITIES: No pitting edema Laboratory Results 04/02/18 05:40 04/02/18 05:40 04/02/18 05:40 Phosphorus 2.4 L Magnesium 1.6 L Active Medications Generic Name Dose Route Start Last Admin Trade Name Freq PRN Reason Stop Dose Admin Acetaminophen 1,000 mg 04/01/18 19:00 Ofirmev Injection - IVPB Q6H PRN PAIN LEVEL 1-5 Atorvastatin Calcium 40 mg 04/01/18 22:00 04/01/18 21:55 Lipitor - PO 40 mg HS ANITRA Administration Clotrimazole 1 applic 04/01/18 22:00 04/02/18 09:17 Lotrimin 1% Cream - TP 1 appful BID ANITRA Administration Gabapentin 100 mg 04/01/18 22:00 04/02/18 06:23 Neurontin - PO 100 mg TID ANITRA Administration Hydrochlorothiazide 25 mg 04/02/18 10:00 04/02/18 09:16 Hctz - PO 25 mg DAILY ANITRA Administration Sodium Phosphate 25 mm/ Sodium 508.3333 mls @ 84.722 mls/hr 04/02/18 07:35 Chloride IVPB 04/02/18 13:34 ONCE ONE Insulin Aspart 1 vial 04/01/18 22:00 04/02/18 06:23 Novolog Vial Sliding Scale - SQ 4 units ACHS ANITRA Administration Protocol Insulin Detemir 40 units 04/02/18 22:00 Levemir Vial SQ HS [facility] Ketorolac Tromethamine 30 mg 04/01/18 19:00 04/01/18 22:03 Toradol Injection - IVPUSH 04/06/18 08:18 30 mg Q6H PRN Administration PAIN LEVEL 6-10 Latanoprost 1 drop 04/01/18 22:00 04/01/18 21:55 Xalatan 0.005% Eye Drops - OU 1 drp HS ANITRA Administration Lisinopril 40 mg 04/02/18 10:00 04/02/18 09:16 Prinivil PO 40 mg DAILY ANITRA Administration Metoprolol Succinate 25 mg 04/02/18 10:00 04/02/18 09:16 Toprol Xl - PO 25 mg DAILY ANITRA Administration Tamsulosin HCl 0.4 mg 04/02/18 08:30 04/02/18 08:36 Flomax - PO 0.4 mg DAILY@0830 ANITRA Administration ASSESSMENT/PLAN: Patient is a 72 year old female who presented for worsening flank pain in the last two weeks and was told to come to the ED by her Urologist for further evaluation of Left Nephrolithiasis. Left Nephrolithiasis -S/P cystoscopy/left retrograde pyelogram/left ureteroscopic stone manipulation and stent placement (Day #1). Findings of 6+ left upper ureteral stone with proximal 4/5 hydroureteronephrosis. Stone migrated into kidney and optics did not allow for further treatment of stone, as per Urologist note. -Continue Flomax 0.4mg po daily -Pain control with Toradol 30mg IVP Q6H PRN and Tylenol 1000mg Q6H IVPB PRN -Will need outpatient follow up with Dr. Overton for stent removal -Tolerating Solid foods and reports adequate pain control Acute Anemia -Possibly secondary to hemodilution vs. acute blood loss -Repeat CBC this afternoon -Iron panel pending -Continue to monitor CBC or over bleeding HTN -Continue home medication Lisinopril 40mg daily -Continue Home medication Metoprolol Succinate 25mg daily -Continue Home medication HCTZ 25mg daily -Continue to monitor BP IDDMII -ISS, BGM ACHS -Levemir 40 units HS F/E/N -On no fluids, tolerating PO -Hypomagnesemia and hypophosphatemia. Replete and repeat -Diabetic/Sodium controlled diet #Prophylaxis -Moderate risk. SCD's before procedure for DVT -No GI required Disposition -Full code -S/P cystoscopy and stent placement. Repeat CBC due to drop in hgb and potential discharge within 24 hours. Rosa Sarmiento [id number]
[2018-04-02] MEDS ORDERED: INSULIN (NOVOLOG) ASPART 100 UNITS/ML 10ML VIAL ONE (10:59)
[2018-04-02] MEDS ORDERED: DOCUSATE SODIUM 100 MG CAPSULE (FP) PO PRN (11:11)
--- NOTE | 2018-04-02 11:11 | PN ---
Teaching Attending Note Name of Resident: Rosa Sarmiento ATTENDING PHYSICIAN STATEMENT I saw and evaluated the patient. I reviewed the resident's note and discussed the case with the resident. I agree with the resident's findings and plan as documented with exceptions below. SUBJECTIVE: Patient seen and examined. Pain markedly improved, no fevers, chills. Hematuria , no prior similar history. OBJECTIVE: Vital Signs Period Temp Pulse Resp BP Sys/Acevedo Pulse Ox Last 24 Hr 97.5 F-98.5 F 62-74 14-20 133-157/64-83 94-97 Intake & Output 03/30/18 03/31/18 04/01/18 04/02/18 23:59 23:59 23:59 23:59 Intake Total 1400 1200 Balance 1400 1200 Weight 143 lb 143 lb 4 oz 143 lb 3 oz General: sitting in chair, no acute distress Abdomen:soft, minimal LMQ tenderness, no CVA tenderness, no voluntary or involuntary guarding or rigidity Extremities: no edema Chest:CTAB, no rales or wheezing Home Medications Medication Instructions Recorded Acetaminophen 1,000 mg PO BID PRN 03/31/18 Alendronate Sodium [Binosto] 70 mg PO WEEKLY 03/31/18 Atorvastatin Ca [Lipitor] 40 mg PO HS 03/31/18 Clotrimazole [Itch Relief] 45 gm TP BID 03/31/18 Fluticasone Prop 0.05% Nasal 1 spray NS DAILY 03/31/18 [Flonase -] Fluticasone Propionate [Flovent 50 mcg IH BID 03/31/18 Diskus] Gabapentin 100 mg PO TID 03/31/18 Hydrochlorothiazide [Hctz -] 25 mg PO DAILY 03/31/18 Insulin Glargine,Hum.rec.anlog 40 unit SQ HS 03/31/18 [Basaglar Kwikpen U-100] Latanoprost 0.005% Eye Drops 1 drop HS 03/31/18 [Xalatan 0.005% Eye Drops -] Lisinopril [Prinivil -] 40 mg PO DAILY 03/31/18 Metoprolol Succinate 25 mg PO DAILY 03/31/18 Repaglinide [Prandin -] 0.5 mg PO DAILY 03/31/18 metFORMIN HCL [Metformin HCl] 1,000 mg PO BID 03/31/18 Active Medications Acetaminophen (Ofirmev Injection -) 1,000 mg IVPB Q6H PRN PRN Reason: PAIN LEVEL 1-5 Atorvastatin Calcium (Lipitor -) 40 mg PO [facility] Last Admin: 04/01/18 21:55 Dose: 40 mg Clotrimazole (Lotrimin 1% Cream -) 1 applic TP BID [facility] Last Admin: 04/02/18 09:17 Dose: 1 appful Gabapentin (Neurontin -) 100 mg PO TID [facility] Last Admin: 04/02/18 06:23 Dose: 100 mg Hydrochlorothiazide (Hctz -) 25 mg PO DAILY [facility] Last Admin: 04/02/18 09:16 Dose: 25 mg Sodium Phosphate 25 mm/ Sodium (Chloride) 508.3333 mls @ 84.722 mls/hr IVPB ONCE ONE Stop: 04/02/18 13:34 Last Admin: 04/02/18 10:15 Dose: 84.722 mls/hr Insulin Aspart (Novolog Vial Sliding Scale -) 1 vial SQ [facility]; Protocol Last Admin: 04/02/18 11:00 Dose: 4 units Insulin Detemir (Levemir Vial) 40 units SQ [facility] Ketorolac Tromethamine (Toradol Injection -) 30 mg IVPUSH Q6H PRN PRN Reason: PAIN LEVEL 6-10 Stop: 04/06/18 08:18 Last Admin: 04/01/18 22:03 Dose: 30 mg Latanoprost (Xalatan 0.005% Eye Drops -) 1 drop OU HS [facility] Last Admin: 04/01/18 21:55 Dose: 1 drp Lisinopril (Prinivil) 40 mg PO DAILY [facility] Last Admin: 04/02/18 09:16 Dose: 40 mg Metoprolol Succinate (Toprol Xl -) 25 mg PO DAILY [facility] Last Admin: 04/02/18 09:16 Dose: 25 mg Tamsulosin HCl (Flomax -) 0.4 mg PO DAILY@0830 [facility] Last Admin: 04/02/18 08:36 Dose: 0.4 mg Laboratory Results - last 24 hr 04/01/18 04/01/18 04/01/18 01:43 01:43 14:30 WBC 7.1 RBC 3.78 Hgb 10.2 L Hct 31.5 L D MCV 83.4 MCH 26.9 MCHC 32.3 RDW 14.7 Plt Count 213 D MPV 10.1 Sodium Potassium Chloride Carbon Dioxide Anion Gap BUN Creatinine Creat Clearance w eGFR POC Glucometer Random Glucose Calcium Phosphorus Magnesium Iron 36 TIBC 365 Iron Saturation 10 L Transferrin 236 04/01/18 04/02/18 04/02/18 21:52 05:40 05:40 WBC 6.2 RBC 3.38 L Hgb 9.1 L Hct 27.7 L MCV 81.8 MCH 26.9 MCHC 32.9 RDW 14.0 Plt Count 192 MPV 9.8 Sodium 141 Potassium 4.8 Chloride 112 H Carbon Dioxide 25 Anion Gap 4 L BUN 13 Creatinine 1.0 Creat Clearance w eGFR 54.35 POC Glucometer 123 Random Glucose 186 H Calcium 9.0 Phosphorus 2.4 L Magnesium 1.6 L Iron TIBC Iron Saturation Transferrin 04/02/18 04/02/18 06:23 10:53 WBC RBC Hgb Hct MCV MCH MCHC RDW Plt Count MPV Sodium Potassium Chloride Carbon Dioxide Anion Gap BUN Creatinine Creat Clearance w eGFR POC Glucometer 218 213 Random Glucose Calcium Phosphorus Magnesium Iron TIBC Iron Saturation Transferrin Microbiology 03/31/18 20:50 Urine - Urine Clean Catch Urine Culture - Final ASSESSMENT AND PLAN: 72 yof with PMHx of HTN, IDDM, admitted with left flank pain and obstructing uropathy -Reported left obstructive uropathy with 6 mm stone s/p Left ureteral stent placement 04/01 -Hematuria, from above -Acute on chronic anemia, suspect from hematuria/hemodilution -HTN -Hypomagnesemia -Hypophosphatemia -IDDM, here with hypoglycemia Plan: Hematuria today, discussed with Dr. Westley Edouard, expected from stent, cleared for dc. urine cx neg. replete phos/mg. repeat CBC later today Iron panel noted, start PO iron once daily. d/c IVF. resume home meds on dc Dispo d/c home later today with outpatient urology follow up if CBC stable with no new concerns. Plan discussed with patient and nursing.
[2018-04-02] MEDS ORDERED: FERROUS SO4 325 MG TABLET (FP) PO SCH (11:15)
[2018-04-02 12:39] LABS: HEMATOCRIT 28.7 % (32.4-45.2); HEMOGLOBIN 9.4 GM/dL (10.7-15.3); MCH 27.3 pg (25.7-33.7); MCHC 32.7 g/dl (32.0-36.0); MEAN CELL VOLUME 83.4 fl (80-96); MEAN PLT VOLUME 9.9 fl (7.5-11.1); PLATELET COUNT 193 K/MM3 (134-434); RBC 3.44 M/mm3 (3.60-5.2); RDW 14.5 % (11.6-15.6); WHITE BLOOD COUNT 6.2 K/mm3 (4.0-10.0)
[2018-04-02 13:22] VITALS: BP 148/71; PULSE 73; TEMP 98.4
--- NOTE | 2018-04-02 13:30 | DS ---
Physical Exam: SUBJECTIVE: Patient seen and examined by me at bedside. No acute events overnight S/P cystoscopy/left retrograde pyelogram/left ureteroscopic stone manipulation and stent placement (Day #1) Patient reports mild left flank pain and hematuria Otherwise, patient denies chest pain, palpitations, shortness of breath, headaches, vomiting, dizziness. OBJECTIVE: Vital Signs Period Temp Pulse Resp BP Sys/Acevedo Pulse Ox Last 24 Hr 97.5 F-98.5 F 62-74 14-20 133-157/64-83 94-97 PHYSICAL EXAM GENERAL: The patient is awake, alert, and fully oriented, in no acute distress. EYES: Sclera anicteric, conjunctiva clear. ENT: Moist mucous membranes. LUNGS: CTA bilaterally, no wheezes, no crackles, no accessory muscle use. HEART: Regular rate and rhythm, Normal S1 and S2 without murmur, rub or gallop. ABDOMEN: Soft, mild tenderness upon palpation of suprapubic region, nondistended , normoactive bowel sounds. Improved left CVA tenderness. EXTREMITIES: No pitting edema Laboratory Results 04/02/18 12:03 04/02/18 05:40 04/02/18 05:40 Phosphorus 2.4 L Magnesium 1.6 L PRE-HOSPITAL COURSE: Patient is a 72 year old female with a PMHx of HTN, IDDMII, Nephrolithiasis who presented to the hospital for worsening flank pain in the last two weeks. Patient following urologist Dr. Overton and was scheduled for a Lithotripsy but advised patient that if pain worsens before the procedure, she would need to come to the ED. Patient was seen in the ED and admitted for further management with Urologist. HOSPITAL COURSE: Throughour hospitalization patient was placed on NPO, given IV fluids and pain medication with adequate pain control. Patient was evaluated by Urology and took patient to the OR and is now s/p cystoscopy/left retrograde pyelogram/left ureteroscopic stone manipulation and stent placement (04/02/18). Findings of 6 + left upper ureteral stone with proximal 4/5 hydroureteronephrosis. Stone migrated into kidney and optics did not allow for further treatment of stone, as per Urologist note. Patient tolerated procedure well with complications. She was found to have a low hgb after procedure but was determined it was a hemodilutional component. Repeat CBC revealed improvement of hgb. Patient was cleared from Urology standpoint and recommended a prescription for Flomax to take at night and to follow up at his office for evaluation and lithotripsy. Patient had Stents placed and will need follow up with Urologist for removal. Patient medically cleared for discharged and to be taken home by her daughters. Date of Admission:03/31/18 Date of Discharge: 04/02/18 Minutes to complete discharge: 45 Discharge Summary Reason For Visit: CALCULUS OF KIDNEY Current Active Problems Nephrolithiasis (Acute) Condition: Stable - Instructions Diet, Activity, Other Instructions: RECOMMENDATIONS: -You were seen here for a condition called Nephrolithiasis, which is a kidney stone, and was seen by the urologist for a procedure to remove the stone. You had a stent placed during the procedure and will need to follow up with Dr. Brad Edouard within 1-2 weeks for follow up. -You may take Tylenol for pain and fevers but do not take more than 4000mg in 24 hours -Remain hydrated with plenty of water -You are started on iron pills, take once daily. Please note that the medication can cause stomach upset and constipation. Recommend to maintain high fiber diet and adequate bowel regimen while on iron pills and notify your doctor if stomach upset noted. -If you have persistent or worsening symptoms such as fevers >103, despite Tylenol use, severe abdominal pain, chest pain or severe shortness of breath, persistent blood in urine, dizziness or any new concerns, call 911 or return to the emergency department. FOLLOW UP: -Please follow up with your primary care physician within one week for repeat labs (BMP, magnesium and phosphorous) and monitoring of your sugar levels -Please follow up with your Urologist, Dr. Overton, in 1 week to remove stents and perform lithotripsy MEDICATIONS -You may take Tylenol for Pain and Fevers but do not take more than 4000mg in 24 hours -You will be started on a medication called Flomax. You will take 0.4mg every night. Please pick it up from your pharmacy -You may resume your home medications Referrals: Michael Overton MD [Staff Physician] - 1 Week Francisca Calix MD [Primary Care Provider] - Disposition: HOME - Home Medications Comprehensive Discharge Medication List: Ambulatory Orders Acetaminophen 1,000 mg PO BID PRN 03/31/18 Alendronate Sodium [Binosto] 70 mg PO WEEKLY 03/31/18 Atorvastatin Ca [Lipitor] 40 mg PO HS 03/31/18 Clotrimazole [Itch Relief] 45 gm TP BID 03/31/18 Fluticasone Prop 0.05% Nasal [Flonase -] 1 spray NS DAILY 03/31/18 Fluticasone Propionate [Flovent Diskus] 50 mcg IH BID 03/31/18 Gabapentin 100 mg PO TID 03/31/18 Hydrochlorothiazide [Hctz -] 25 mg PO DAILY 03/31/18 Insulin Glargine,Hum.rec.anlog [Basaglar Kwikpen U-100] 40 unit SQ HS 03/31/18 Latanoprost 0.005% Eye Drops [Xalatan 0.005% Eye Drops -] 1 drop HS 03/31/18 Lisinopril [Prinivil -] 40 mg PO DAILY 03/31/18 Metoprolol Succinate 25 mg PO DAILY 03/31/18 Repaglinide [Prandin -] 0.5 mg PO DAILY 03/31/18 metFORMIN HCL [Metformin HCl] 1,000 mg PO BID 03/31/18 This patient is new to me today: No Emergency Visit: Yes ED Registration Date: 03/31/18 Care time: The patient presented to the Emergency Department on the above date and was hospitalized for further evaluation of their emergent condition. Critical Care patient: No - Discharge Referral Referred to [facility] Med P.C.: No
[2018-04-02] MEDS ORDERED: INSULIN (LEVEMIR) 100 UNITS/ML UNITS SQ SCH ×2 (22:00)
== END 2018-04-02 18:35 | disposition home or self-care (01) | DRG 465 ==
LOC: JER 15:57 → JERBED 21:30 → J6S 04-01 02:34
PROVIDERS: ADMIT Internal Medicine; ATTEND Hospitalist
PROC: 0T778DZ Dilation of Left Ureter with Intraluminal Device, Via Natural or Artificial Opening Endoscopic (ICD-10-PCS; principal; 2018-04-01 13:00)
PROC: BT1FZZZ Fluoroscopy of Left Kidney, Ureter and Bladder (ICD-10-PCS; 2018-04-01 13:00)
DX: N13.2 Hydronephrosis with renal and ureteral calculous obstruction (principal); I10 Essential (primary) hypertension; D64.9 Anemia, unspecified; E83.42 Hypomagnesemia; E11.649 Type 2 diabetes mellitus with hypoglycemia without coma; N13.9 Obstructive and reflux uropathy, unspecified; E83.39 Other disorders of phosphorus metabolism; R31.9 Hematuria, unspecified
CPT/HCPCS: 36415; 76000-TC-FY; 80048; 80053; 81003; 81015; 82962; 83036; 83540; 83550; 83735; 84100; 84466; 85025; 85027; 85044; 85610; 85730; 86850; 86900; 86901; 87086; 93005; 93010; 94760; 99283-25; J0131; J7030

== ENCOUNTER 2018-05-06 06:42 | Day surgery (SDC) | payer OTHER ==
[2018-05-03 12:32] VITALS: BMI 24.7
[2018-05-06] MEDS ORDERED: MIDAZOLAM HCL 2 MG/2 ML SINGLE DOSE VIAL ONE (08:01)
--- NOTE | 2018-05-06 09:21 | OP ---
Operative Note - Note: Operative Date: 05/06/18 Operation: Left renal stone Findings: 10 mm lower pole left renal stone Surgeon: Michael Overton Anesthesia: Fractional Estimated Blood Loss (mls): 0 Drains & Tubes with Location: JYessi valentin Left Operative Report Dictated: Yes
[2018-05-06 12:19] VITALS: TEMP 98.1
[2018-05-06 12:25] VITALS: BP 132/56; PULSE 68
--- NOTE | 2018-05-07 10:02 | OP ---
DATE OF OPERATION: 05/06/2018 PREOPERATIVE DIAGNOSIS: Left renal stone. POSTOPERATIVE DIAGNOSIS: Left renal stone. PROCEDURE: Left extracorporeal shock wave lithotripsy. ATTENDING: Michael Edouard MD ANESTHESIA: General. OPERATION FOLLOWS: The patient was brought in the operating room, placed in supine position on the operating room table. Ultrasonography and fluoroscopy were performed. A 10-mm left renal stone was identified. This was positioned in the left lower pole. The patient was then given anesthesia and preoperative antibiotics. Shock wave lithotripsy was then performed. Excellent fragmentation of the stone was noted under real time ultrasonography and fluoroscopy. There were no complications noted. The disposition of the patient was to the recovery room. Napoleon [id number]
== END 2018-05-06 10:00 | disposition home or self-care (01) ==
LOC: JASU-SURG 06:42
PROVIDERS: ATTEND Urology
PROC: 0TF4XZZ Fragmentation in Left Kidney Pelvis, External Approach (ICD-10-PCS; principal; 2018-05-06 08:00)
DX: N20.0 Calculus of kidney (principal)
CPT/HCPCS: 82962

== ENCOUNTER 2018-06-03 08:49 | Day surgery (SDC) | payer OTHER ==
[2018-05-31 11:40] VITALS: BMI 24.7
[2018-06-03] MEDS ORDERED: PROPOFOL 20 ML ONE (10:48)
[2018-06-03] MEDS ORDERED: MIDAZOLAM HCL 2 MG/2 ML SINGLE DOSE VIAL ONE (10:49)
--- NOTE | 2018-06-03 11:29 | OP ---
Operative Note - Note: Operative Date: 06/03/18 Pre-Operative Diagnosis: Right renal stone Operation: Right ESWL Findings: * 10 mm upper jinny left renal stone Post-Operative Diagnosis: Same as Pre-op Surgeon: Michael Overton Anesthesia: Fractional Estimated Blood Loss (mls): 0 Drains, Volume Out (mls): 0 Operative Report Dictated: Yes
[2018-06-03 11:36] VITALS: TEMP 98.2
[2018-06-03 12:31] VITALS: BP 129/64; PULSE 70
--- NOTE | 2018-06-04 08:38 | OP ---
DATE OF OPERATION: 06/03/2018 PREOPERATIVE DIAGNOSIS: Right renal stone. POSTOPERATIVE DIAGNOSIS: Right renal stone. PROCEDURE: Right extracorporal shockwave lithotripsy. ATTENDING: Michael Edouard MD ANESTHESIA: Fractional. OPERATION: The patient was brought into the operating room and placed in supine position on the operating table. Ultrasonography and fluoroscopy were performed. A 10-mm upper pole right renal stone was identified. Anesthesia and preoperative antibiotics were then administered. Shockwave lithotripsy was performed. Excellent fragmentation was noted. No complications were noted. The patient tolerated the procedure very well. DISPOSITION: To recovery room. Napoleon [id number]
== END 2018-06-03 12:40 | disposition home or self-care (01) ==
LOC: JASU-SURG 08:49
PROVIDERS: ATTEND Urology
PROC: 0TF3XZZ Fragmentation in Right Kidney Pelvis, External Approach (ICD-10-PCS; principal; 2018-06-03 11:00)
DX: N20.0 Calculus of kidney (principal)
CPT/HCPCS: 82962

== ENCOUNTER 2020-09-05 19:37 | Observation (INO) | payer OTHER ==
[2020-09-05 19:51] VITALS: BMI 25.9
[2020-09-05] MEDS ORDERED: ACETAMINOPHEN 325 MG TABLET (FP) PO ONE (20:35)
[2020-09-05] MEDS ORDERED: ACETAMINOPHEN 325 MG TABLET (FP) ONE (20:48)
[2020-09-05 21:08] LABS: BASO % 0.4 % (0-2.0); EOS % 0.5 % (0-4.5); HEMATOCRIT 28.8 % (32.4-45.2); HEMOGLOBIN 9.3 GM/dL (10.7-15.3); LYMPH % 12.2 % (8-40); MCH 26.1 pg (25.7-33.7); MCHC 32.2 g/dl (32.0-36.0); MEAN CELL VOLUME 81.1 fl (80-96); MEAN PLT VOLUME 8.6 fl (7.5-11.1); MONO % 7.7 % (3.8-10.2); NEUT % 79.2 % (42.8-82.8); PLATELET COUNT 181 10^3/uL (134-434); RBC 3.55 M/mm3 (3.60-5.2); RDW 14.7 % (11.6-15.6); WHITE BLOOD COUNT 8.4 K/mm3 (4.0-10.0)
[2020-09-05 21:31] LABS: CHLORIDE 103 mmol/L (98-107); SODIUM 136 mmol/L (136-145)
[2020-09-05 21:33] LABS: CALCIUM 10.6 mg/dL (8.5-10.1)
[2020-09-05 21:34] LABS: ALBUMIN 3.5 g/dl (3.4-5.0); ANION GAP 9 MMOL/L (8-16); CO2 24 mmol/L (21-32); GLUCOSE,RANDOM 286 mg/dL (74-106); LIPASE 118 U/L (73-393)
[2020-09-05 21:37] LABS: CREATININE 1.2 mg/dL (0.55-1.3); SGOT/AST 16 U/L (15-37); SGPT/ALT 34 U/L (13-61)
[2020-09-05 21:38] LABS: BILIRUBIN,TOTAL 0.3 mg/dL (0.2-1); TOT PROT 6.6 g/dl (6.4-8.2)
[2020-09-05 21:40] LABS: ALK PHOS 57 U/L (45-117)
[2020-09-05 21:44] LABS: LACTIC ACID 4.5 mmol/L (0.4-2.0)
[2020-09-05] MEDS ORDERED: LACTATED RINGERS SOLUTION 1000 ML INFUS.BAG IV ONE (21:45)
[2020-09-05 22:06] LABS: EPI CELLS 2 /uL (0-25.1); HYALINE CASTS 1 /uL (0-3.1); PH,URINE 5.5 (5.0-8.0); URINE APPEARANCE CLEAR; URINE BACTERIA >9,000 /uL (0-1359); URINE BILIRUBIN NEGATIVE (NEGATIVE); URINE COLOR YELLOW; URINE GLUCOSE (UA) 3+ (NEGATIVE); URINE KETONE NEGATIVE (NEGATIVE); URINE LEUK ESTERASE 2+ (NEGATIVE); URINE NITRITE POSITIVE (NEGATIVE); URINE PROTEIN TRACE (NEGATIVE); URINE RBC 34 /uL (0-23.9); URINE UROBILINOGEN 0.2 mg/dL (0.2-1.0); URINE WBC 314 /uL (0-25.8)
[2020-09-06 04:47] LABS: LACTIC ACID 2.1 mmol/L (0.4-2.0)
[2020-09-06] MEDS ORDERED: KETOROLAC TROMETHAMINE 30 MG/1 ML VIAL IVPUSH ONE (05:05)
[2020-09-06] MEDS ORDERED: KETOROLAC TROMETHAMINE 30 MG/1 ML VIAL ONE (05:17)
[2020-09-06] MEDS ORDERED: morphine CARPU-JECT 4 MG/1 ML DISP.SYRIN IVPUSH ONE (06:30)
[2020-09-06] MEDS ORDERED: morphine SULFATE 4 MG/ML VIAL ONE (06:51)
[2020-09-06] MEDS ORDERED: LACTATED RINGERS SOLUTION 1000 ML INFUS.BAG IV ONE (07:02)
[2020-09-06] MEDS ORDERED: FAMOTIDINE 20 MG TABLET PO SCH (10:00)
[2020-09-06 10:23] LABS: LACTIC ACID 2.5 mmol/L (0.4-2.0)
[2020-09-06] MEDS ORDERED: SODIUM CHLORIDE 500 ML IV STA (10:40)
[2020-09-06] MEDS: PANTOPRAZOLE 40 MG TABLET PO SCH (10:47)
[2020-09-06] MEDS: ASPIRIN 81 MG CHEWABLE TABLETS PO SCH (10:47)
[2020-09-06] MEDS: metoPROLOL SUCCINATE 25 MG TAB.SR.24H (FP) PO SCH (10:47)
[2020-09-06] MEDS: SODIUM CHLORIDE 1,000 ML IV SCH ×2 (11:01→12:08)
[2020-09-06] MEDS: INSULIN SLIDING SCALE (NOVOLOG) 1 VIAL SQ SCH ×3 (12:18→21:29)
[2020-09-06] MEDS: HEPARIN NA (PORCINE) 5,000 UNITS/ML 1ML VIAL SQ SCH ×2 (15:05→21:28)
[2020-09-06] MEDS: ACETAMINOPHEN 1000 MG/100 ML VIAL (NON FORMULARY) IVPB PRN (16:15)
[2020-09-07] MEDS: INSULIN SLIDING SCALE (NOVOLOG) 1 VIAL SQ SCH ×4 (06:25→22:31)
[2020-09-07] MEDS: HEPARIN NA (PORCINE) 5,000 UNITS/ML 1ML VIAL SQ SCH ×3 (06:27→22:32)
[2020-09-07 09:28] LABS: BASO % 0.3 % (0-2.0); EOS % 0.8 % (0-4.5); HEMATOCRIT 26.7 % (32.4-45.2); HEMOGLOBIN 8.5 GM/dL (10.7-15.3); LYMPH % 22.9 % (8-40); MCH 25.6 pg (25.7-33.7); MEAN CELL VOLUME 80.2 fl (80-96); MEAN PLT VOLUME 9.5 fl (7.5-11.1); MONO % 11.7 % (3.8-10.2); NEUT % 64.3 % (42.8-82.8); PLATELET COUNT 154 10^3/uL (134-434); RBC 3.33 M/mm3 (3.60-5.2); RDW 14.4 % (11.6-15.6); WHITE BLOOD COUNT 7.5 K/mm3 (4.0-10.0)
[2020-09-07] MEDS ORDERED: cefTRIAXone SODIUM 1 GM VIAL ONE (09:39)
[2020-09-07] MEDS ORDERED: DEXTROSE 5%-WATER - 50 ML IVPB ONE (09:40)
[2020-09-07] MEDS ORDERED: CEFTRIAXONE 1 GM in DEXTROSE 5%-WATER - 50 ML IVPB SCH (10:00)
[2020-09-07] MEDS: PANTOPRAZOLE 40 MG TABLET PO SCH (10:06)
[2020-09-07] MEDS: ASPIRIN 81 MG CHEWABLE TABLETS PO SCH (10:06)
[2020-09-07] MEDS: ACETAMINOPHEN 1000 MG/100 ML VIAL (NON FORMULARY) IVPB PRN ×2 (10:07→22:45)
[2020-09-07 10:21] LABS: ALBUMIN 2.8 g/dl (3.4-5.0); BLOOD UREA NITROGEN 14.4 mg/dL (7-18); CALCIUM 9.7 mg/dL (8.5-10.1)
[2020-09-07 10:22] LABS: MAGNESIUM 0.9 mg/dL (1.8-2.4)
[2020-09-07 10:25] LABS: CREATININE 0.9 mg/dL (0.55-1.3)
[2020-09-07 10:26] LABS: BILIRUBIN,TOTAL 0.4 mg/dL (0.2-1); TOT PROT 5.6 g/dl (6.4-8.2)
[2020-09-07] MEDS: metoPROLOL SUCCINATE 25 MG TAB.SR.24H (FP) PO SCH (11:15)
[2020-09-07] MEDS ORDERED: INSULIN SLIDING SCALE (NOVOLOG) 1 VIAL SQ ONE (11:31)
[2020-09-07] MEDS ORDERED: NAPH,MB-DB/K PH,MBDB POWDER PACKET PO ONE (14:30)
[2020-09-07] MEDS ORDERED: PNEUMOC 13-VAL CONJ-DIP CRM/PF 0.5 ML DISP.SYRIN IM ONE (19:30)
[2020-09-08] MEDS: INSULIN SLIDING SCALE (NOVOLOG) 1 VIAL SQ SCH ×4 (06:34→21:43)
[2020-09-08] MEDS: HEPARIN NA (PORCINE) 5,000 UNITS/ML 1ML VIAL SQ SCH ×3 (06:35→21:43)
[2020-09-08] MEDS: PANTOPRAZOLE 40 MG TABLET PO SCH (09:11)
[2020-09-08] MEDS: ASPIRIN 81 MG CHEWABLE TABLETS PO SCH (09:11)
[2020-09-08] MEDS: metoPROLOL SUCCINATE 25 MG TAB.SR.24H (FP) PO SCH (09:12)
[2020-09-08 09:23] LABS: BASO % 0.5 % (0-2.0); EOS % 1.2 % (0-4.5); HEMATOCRIT 28.4 % (32.4-45.2); HEMOGLOBIN 9.2 GM/dL (10.7-15.3); LYMPH % 25.6 % (8-40); MCH 26.2 pg (25.7-33.7); MCHC 32.5 g/dl (32.0-36.0); MEAN CELL VOLUME 80.5 fl (80-96); MEAN PLT VOLUME 9.2 fl (7.5-11.1); MONO % 13.3 % (3.8-10.2); NEUT % 59.4 % (42.8-82.8); PLATELET COUNT 164 10^3/uL (134-434); RBC 3.53 M/mm3 (3.60-5.2); RDW 14.5 % (11.6-15.6); WHITE BLOOD COUNT 5.3 K/mm3 (4.0-10.0)
[2020-09-08 10:09] LABS: CALCIUM 10.3 mg/dL (8.5-10.1)
[2020-09-08 10:10] LABS: ALBUMIN 3.2 g/dl (3.4-5.0); BLOOD UREA NITROGEN 9.3 mg/dL (7-18)
[2020-09-08 10:13] LABS: CREATININE 0.9 mg/dL (0.55-1.3)
[2020-09-08 10:14] LABS: BILIRUBIN,TOTAL 0.3 mg/dL (0.2-1); TOT PROT 6.6 g/dl (6.4-8.2)
[2020-09-08 10:37] LABS: PHOSPHOROUS 2.3 mg/dL (2.5-4.9)
[2020-09-08 11:29] LABS: ANISOCYTOSIS 1+; MACROCYTOSIS 0; PLATELET ESTIMATE NORMAL
[2020-09-08] MEDS: NAPH,MB-DB/K PH,MBDB POWDER PACKET PO SCH ×2 (12:59→21:43)
[2020-09-08] MEDS: ACETAMINOPHEN 1000 MG/100 ML VIAL (NON FORMULARY) IVPB PRN (21:23)
[2020-09-09] MEDS: INSULIN SLIDING SCALE (NOVOLOG) 1 VIAL SQ SCH ×2 (06:10→11:49)
[2020-09-09] MEDS: HEPARIN NA (PORCINE) 5,000 UNITS/ML 1ML VIAL SQ SCH (06:10)
[2020-09-09 08:55] LABS: BASO % 0.6 % (0-2.0); EOS % 1.8 % (0-4.5); HEMOGLOBIN 9.5 GM/dL (10.7-15.3); LYMPH % 30.1 % (8-40); MCH 25.5 pg (25.7-33.7); MCHC 31.7 g/dl (32.0-36.0); MEAN CELL VOLUME 80.2 fl (80-96); MEAN PLT VOLUME 9.3 fl (7.5-11.1); MONO % 15.3 % (3.8-10.2); NEUT % 52.2 % (42.8-82.8); PLATELET COUNT 195 10^3/uL (134-434); RBC 3.74 M/mm3 (3.60-5.2); RDW 14.2 % (11.6-15.6); WHITE BLOOD COUNT 4.5 K/mm3 (4.0-10.0)
[2020-09-09 09:19] VITALS: BP 147/67; PULSE 82; TEMP 98.8
[2020-09-09 09:23] LABS: CALCIUM 10.4 mg/dL (8.5-10.1)
[2020-09-09 09:24] LABS: ALBUMIN 3.2 g/dl (3.4-5.0); BLOOD UREA NITROGEN 11.6 mg/dL (7-18); MAGNESIUM 1.1 mg/dL (1.8-2.4)
[2020-09-09] MEDS ORDERED: PT OWN MED DRAWER 7, Y5N ONE (09:24)
[2020-09-09 09:27] LABS: PHOSPHOROUS 1.9 mg/dL (2.5-4.9)
[2020-09-09 09:28] LABS: BILIRUBIN,TOTAL 0.2 mg/dL (0.2-1); TOT PROT 6.6 g/dl (6.4-8.2)
[2020-09-09] MEDS: PANTOPRAZOLE 40 MG TABLET PO SCH (10:28)
[2020-09-09] MEDS: ASPIRIN 81 MG CHEWABLE TABLETS PO SCH (10:28)
[2020-09-09] MEDS: metoPROLOL SUCCINATE 25 MG TAB.SR.24H (FP) PO SCH (10:28)
[2020-09-09] MEDS ORDERED: PNEUMOC 13-VAL CONJ-DIP CRM/PF 0.5 ML DISP.SYRIN IM ONE (12:45)
[2020-09-09 14:16] LABS: HEP B CORE AB, TOT Positive (Negative)
== END 2020-09-09 14:11 | disposition home or self-care (01) ==
LOC: JER 19:37 → UNDOADMOB 09-06 06:55 → JERBED 09-06 06:55 → INTOOBSV 09-06 06:55 → J5S 09-06 09:52 → JERBED 09-06 09:52 → MERGE 09-07 09:14 → J5S 09-07 09:14
PROVIDERS: ATTEND Nurse Practitioner Acute Care
PROC: 3E033NZ Introduction of Analgesics, Hypnotics, Sedatives into Peripheral Vein, Percutaneous Approach (ICD-10-PCS; principal; 2020-09-07)
PROC: 3E023GC Introduction of Other Therapeutic Substance into Muscle, Percutaneous Approach (ICD-10-PCS; 2020-09-07)
PROC: 3E013VG Introduction of Insulin into Subcutaneous Tissue, Percutaneous Approach (ICD-10-PCS; 2020-09-07)
PROC: 3E0333Z Introduction of Anti-inflammatory into Peripheral Vein, Percutaneous Approach (ICD-10-PCS; 2020-09-07)
PROC: 3E0337Z Introduction of Electrolytic and Water Balance Substance into Peripheral Vein, Percutaneous Approach (ICD-10-PCS; 2020-09-07)
DX: R10.31 Right lower quadrant pain (principal); E11.9 Type 2 diabetes mellitus without complications; I10 Essential (primary) hypertension; K21.9 Gastro-esophageal reflux disease without esophagitis; Z87.442 Personal history of urinary calculi; Z90.49 Acquired absence of other specified parts of digestive tract; D64.9 Anemia, unspecified; Z29.9 Encounter for prophylactic measures, unspecified; E78.5 Hyperlipidemia, unspecified; R19.7 Diarrhea, unspecified; Z88.0 Allergy status to penicillin; R10.9 Unspecified abdominal pain
CPT/HCPCS: 36415; 74176-TC; 80053; 80061; 81003; 82962; 83036; 83605; 83690; 83721; 83735; 84100; 84439; 84443; 84480; 84484; 85025; 86317; 86704; 86705; 86706; 86707; 86708; 86803; 87040; 87086; 87186; 87340; 90670; 93005; 93010; 96361; 96372; 96374; 96375; 97116-GP; 97162-GP; 99285-25; C9803; G0378; J0131; J1644; U0003; U0005

== ENCOUNTER 2021-11-28 04:15 | Day surgery (SDC) | payer OTHER ==
[2021-11-25 11:26] VITALS: BMI 28.3
[2021-11-28] MEDS ORDERED: ONDANSETRON 4 MG/2 ML VIAL IVPUSH PRN (15:31)
[2021-11-28] MEDS ORDERED: ACETAMINOPHEN 325 MG TABLET (FP) PO PRN (15:31)
[2021-11-28] MEDS ORDERED: LACTATED RINGERS SOLUTION 1,000 ML IV SCH (15:45)
== END 2021-11-28 08:30 | disposition home or self-care (01) ==
LOC: JASU-SURG 04:15
PROVIDERS: ATTEND Urology
DX: Z53.8 Procedure and treatment not carried out for other reasons (principal)

== ENCOUNTER 2021-12-26 03:59 | Day surgery (SDC) | payer OTHER ==
[2021-12-22 14:32] VITALS: BMI 28.1
[2021-12-26 08:50] VITALS: RESP 18
[2021-12-26 09:24] VITALS: BP 130/64; PULSE 70; TEMP 97
== END 2021-12-26 10:10 | disposition home or self-care (01) ==
LOC: JASU-SURG 03:59
PROVIDERS: ATTEND Urology
PROC: 0TF3XZZ Fragmentation in Right Kidney Pelvis, External Approach (ICD-10-PCS; principal; 2021-12-26 08:30)
DX: N20.0 Calculus of kidney (principal)
CPT/HCPCS: 82962